=== PATIENT | female | born 1985 | race Asian ===

== ENCOUNTER 2021-09-22 11:57 | Emergency (ER) | payer SELFPAY ==
[2021-09-22] MEDS ORDERED: RABIES VACCINE 2.5 UNIT SYRINGE IM ONE (13:08)
--- NOTE | 2021-09-22 13:11 | ED Physician Documentation ---
History of Present Illness - Stated complaint Stated Complaint: BAT BITE - Chief complaint Chief Complaint: Ext Problem - History obtained from History obtained from: Patient - History of Present Illness Timing: How many days ago (2) - Additonal information Additional information: 36-year-old female who has had a primary rabies vaccination series done and November 2019 after being bit by a monkey has a bite asuncion to the posterior aspect of her right knee and she is concerned this may be a bat bite. She has had a bat in her home 2 weeks ago which was killed by her and she did not see this bat but when she went to get into the car 2 days ago she felt some funny pain behind her leg and looked and found to small bite lopez. Review of Systems Constitutional: denies: Fever Eyes: denies: Decreased vision Ears: denies: Ear pain Throat: denies: Sore throat Respiratory: denies: Cough GI: denies: Vomiting : denies: Dysuria, Frequency PD PAST MEDICAL HISTORY - Allergies Allergies/Adverse Reactions: Allergies Allergy/AdvReac Type Severity Reaction Status Date / Time No Known Drug Allergies Allergy Verified 09/22/21 12:12 PD ED PE NORMAL - Vitals Vital signs reviewed: Yes (normal ) - General General: Alert and oriented X 3, No acute distress, Well developed/nourished - HEENT HEENT: Atraumatic, PERRL, EOMI - Respiratory Respiratory: No respiratory distress - Derm Derm: Normal color, Warm and dry, No rash - Extremities Extremities: Other (To the posterior aspect of the right knee there are 2 tiny bite lopez by about 1cm there is mild surrounding erythema. ) - Neuro Neuro: Alert and oriented X 3, precision machinist 2-12 intact, No motor deficit, No sensory deficit, Normal speech Eye Opening: Spontaneous Motor: Obeys Commands Verbal: Oriented GCS Score: 15 - Psych Psych: Normal mood, Normal affect Results - Vitals Vitals: Vital Signs - 24 hr 09/22/21 12:08 Temperature 36.9 C Heart Rate 77 Respiratory 16 Rate Blood Pressure 117/69 O2 Saturation 100 PD MEDICAL DECISION MAKING - ED course Complexity details: re-evaluated patient, considered differential, d/w patient ED course: 36-year-old female who has had her primary series for rabies has an exposure that is potential and she has come to the emergency department for treatment. I have looked this up and up-to-date and found that rabies immunoglobulin is contraindicated at this point and she should receive 2 doses of rabies vaccination. She is given her first dose here today we will have her come back in 3 days for her second dose. Departure - Departure Disposition: 01 Home, Self Care Clinical Impression: Bat bite wound Condition: Stable Instructions: Rabies, Rabies Vaccine suspension for injection Follow-Up: [facility] [Provider Group] Comments: You will need a second shot of rabies vaccination in 3 days time. Return here for a second shot in 3 days.
[2021-09-22 13:55] VITALS: BP 114/65
== END 2021-09-22 13:40 | disposition home or self-care (01) ==
LOC: ED 11:57
DX: S81.051A Open bite, right knee, initial encounter (principal); W55.81XA Bitten by other mammals, initial encounter; Z23 Encounter for immunization
CPT/HCPCS: 90471; 99282; 99283

== ENCOUNTER 2021-09-25 10:27 | Emergency (ER) | payer SELFPAY ==
--- NOTE | 2021-09-25 11:21 | ED Physician Documentation ---
History of Present Illness - Stated complaint Stated Complaint: BAT BITE 2ND SHOT - Chief complaint Chief Complaint: General - History obtained from History obtained from: Patient - History of Present Illness Timing: How many days ago (3 days ago was apparently bit by a bat. Had had prior rabies exposure from monkey in [place] with rabies series in the past. So needs just 2 dose booster now. Got first dose 3 days ago. Here for 2nd vaccine.) Review of Systems Constitutional: denies: Fever, Chills Respiratory: denies: Dyspnea, Wheezing GI: denies: Nausea, Vomiting, Diarrhea Skin: denies: Rash PD PAST MEDICAL HISTORY - Past Medical History Past Medical History: No Cardiovascular: None Respiratory: None Neuro: None Endocrine/Autoimmune: None GI: None SOFTWARE ENGINEERING SUPERVISOR: None : None HEENT: None Psych: None Musculoskeletal: None Derm: None - Past Surgical History Past Surgical History: No - Present Medications Home Medications: Ambulatory Orders Medication Instructions Recorded Confirmed No Known Home Medications 09/25/21 09/25/21 - Allergies Allergies/Adverse Reactions: Allergies Allergy/AdvReac Type Severity Reaction Status Date / Time No Known Drug Allergies Allergy Verified 09/25/21 10:46 - Social History Does the pt smoke?: No Smoking Status: Never smoker Does the pt drink ETOH?: No Does the pt have substance abuse?: No - Immunizations Immunizations are current?: No Immunizations: Other immun not current PD ED PE NORMAL - Vitals Vital signs reviewed: Yes - General General: Alert and oriented X 3, No acute distress, Well developed/nourished - Derm Derm: Normal color, Warm and dry - Neuro Neuro: Alert and oriented X 3, Normal speech Results - Vitals Vitals: Vital Signs - 24 hr 09/25/21 09/25/21 10:46 11:50 Temperature 37.3 C Heart Rate 79 63 Respiratory 16 18 Rate Blood Pressure 114/70 124/84 H O2 Saturation 99 98 Oxygen O2 Source Room air PD MEDICAL DECISION MAKING - ED course Complexity details: considered differential (here for 2nd of 2 rabies vaccines. No apparent reaction to first one. ), d/w patient Departure - Departure Disposition: 01 Home, Self Care Clinical Impression: Bat bite wound Condition: Stable Record reviewed to determine appropriate education?: Yes Comments: You should be good after this second rabies vaccine since you have had a series of them in the past. Discharge Date/Time: 09/25/21 12:14
[2021-09-25] MEDS ORDERED: RABIES VACCINE 2.5 UNIT SYRINGE IM ONE (11:24)
[2021-09-25 11:50] VITALS: BP 124/84
== END 2021-09-25 12:14 | disposition home or self-care (01) ==
LOC: ED 10:27
DX: Z20.3 Contact with and (suspected) exposure to rabies (principal); T14.8XXA Other injury of unspecified body region, initial encounter; W64.XXXA Exposure to other animate mechanical forces, initial encounter
CPT/HCPCS: 90471